=== PATIENT | male | born 1940 | race American Indian/Alaskan Native ===

== ENCOUNTER 2017-09-20 03:26 | Emergency (ER) | payer MEDICARE, BC ==
[2017-09-20 03:27] VITALS: BMI 24.8
[2017-09-20 03:42] VITALS: BP 144/87; PULSE 91; RESP 17; TEMP 97.9; O2SAT 98
[2017-09-20 04:07] LABS: BASO % 0.8 % (0.0-2.0); EOS # 0.2 K/uL (0.0-0.7); EOS % 3.2 % (0.0-4.0); HEMOGLOBIN 14.8 g/dL (12.0-18.0); LYMPH # 1.1 K/uL (1.0-4.3); LYMPH % 22.4 % (20.0-40.0); MEAN CELL VOLUME 88.4 fl (80.0-94.0); MEAN CORPUSCULAR HEMOGLOBIN 30.1 pg (27.0-31.0); MEAN CORPUSCULAR HGB CONC 34.1 g/dL (33.0-37.0); MEAN PLATELET VOLUME 8.5 fl (7.2-11.7); MONO # 0.4 K/uL (0.0-0.8); MONO % 7.3 % (0.0-10.0); NEUT # 3.4 K/uL (1.8-7.0); NEUT % 66.3 % (50.0-75.0); NRBC % 0.1 % (0.0-0.0); RBC 4.91 Mil/uL (4.40-5.90); RED CELL DISTRIBUTION WIDTH 14.2 % (11.5-14.5); WHITE BLOOD COUNT 5.1 K/uL (4.8-10.8)
--- NOTE | 2017-09-20 04:07 | ED PDOC ---
Lower Extremity Pain/Injury Time Seen by Provider: 09/20/17 03:33 Chief Complaint (Nursing): Lower Extremity Problem/Injury Chief Complaint (Provider): Lower Extremity Problem/Injury History Per: Patient History/Exam Limitations: no limitations Onset/Duration Of Symptoms: Days (x7) Current Symptoms Are (Timing): Still Present Additional Complaint(s): Nelson Rivera is a 76 year old male with a past medical history of dyslipidemia, diabetes, hypertension, and BPH who is presenting to the ED for evaluation of left calf pain, onset 1 week ago. Patient states that while walking he feels a soreness to his left calf which had improved in the last few days but started again last night. He reports that the pain is affecting his gait and says he is unable to raise his leg. Patient expresses concern for a blood clot but has no history of blood clots. He denies any localized swelling, redness, chest pain, or shortness of breath. He offers no other medical complaints at this time. PMD: Celia Albarado Past Medical History Reviewed: Historical Data, Nursing Documentation, Vital Signs Vital Signs: Last Vital Signs Temp 97.9 F 09/20/17 03:32 Pulse 91 H 09/20/17 03:32 Resp 17 09/20/17 03:32 BP 144/87 09/20/17 03:32 Pulse Ox 98 09/20/17 03:32 - Medical History PMH: Diabetes, HTN Other PMH: BPH, Dyslipidemia - Surgical History Other surgeries: Partial Colon Resection - Family History Family History: States: Unknown Family Hx - Social History Current smoker - smoking cessation education provided: No Alcohol: None Drugs: Denies - Allergies Allergies/Adverse Reactions: Allergies Allergy/AdvReac Type Severity Reaction Status Date / Time No Known Allergies Allergy Verified 02/07/16 07:41 Review of Systems ROS Statement: Except As Marked, All Systems Reviewed And Found Negative Cardiovascular: Negative for: Chest Pain Respiratory: Negative for: Shortness of Breath Musculoskeletal: Positive for: Leg Pain (calf pain). Negative for: Other (calf swelling, redness) Physical Exam - Reviewed Nursing Documentation Reviewed: Yes Vital Signs Reviewed: Yes - Physical Exam Appears: Positive for: Non-toxic, No Acute Distress Head Exam: Positive for: ATRAUMATIC, NORMAL INSPECTION, NORMOCEPHALIC Skin: Positive for: Normal Color, Warm, DRY Eye Exam: Positive for: EOMI, Normal appearance, PERRL ENT: Positive for: Normal ENT Inspection Neck: Positive for: Normal, Painless ROM Cardiovascular/Chest: Positive for: Regular Rate, Rhythm Respiratory: Positive for: Normal Breath Sounds. Negative for: Respiratory Distress Gastrointestinal/Abdominal: Positive for: Normal Exam, Soft. Negative for: Tenderness Back: Positive for: Normal Inspection Extremity: Positive for: Normal ROM, Other ((+) normal Xochitl's sign; (-) erythema, warmth to left calf; (+) scar to tibial surface from previous injury) . Negative for: Pedal Edema, Calf Tenderness, Deformity, Swelling Neurologic/Psych: Positive for: Alert, Oriented. Negative for: Motor/Sensory Deficits - Laboratory Results Result Diagrams: 09/20/17 04:00 09/20/17 04:00 - ECG O2 Sat by Pulse Oximetry: 98 (RA) Pulse Ox Interpretation: Normal Medical Decision Making Medical Decision Making: Time: 3:55 Impression: 76 year old male with left calf pain Plan: --CMP --Creatine Phosphokinase --CBC --D Dimer Patient states that the pain is currently minimal and declines any analgesics. 5:40 Labs reviewed which showed no clinically significant abnormalities. Upon provider reevaluation patient is feeling better, is medically stable, and requires no further treatment in the ED at this time. Patient will be discharged. Counseling was provided and all questions were answered regarding diagnosis and need for follow up with PMD. Patient advised to take Ibuprofen for the pain and encouraged to use warm compresses on site. There is agreement to discharge plan. Return if symptoms persist or worsen. Scribe Attestation: Documented by, Ashely Cruz acting as a scribe for Giovanny Julian MD. Provider Scribe Attestation: All medical record entries made by the Scribe were at my direction and personally dictated by me. I have reviewed the chart and agree that the record accurately reflects my personal performance of the history, physical exam, medical decision making, and the department course for this patient. I have also personally directed, reviewed, and agree with the discharge instructions and disposition. Disposition - Clinical Impression Clinical Impression: Strain of calf muscle - Patient ED Disposition Is Patient to be Admitted: No - Disposition Disposition: Routine/Home Disposition Time: 05:42 Condition: STABLE Instructions: Lower Extremity Muscle Strain Forms: [employer] (Togolese)
[2017-09-20 04:20] LABS: ALB/GLOB RATIO 1.4 (1.0-2.1); ALBUMIN 4.4 g/dL (3.5-5.0); ALT/SGPT 35 U/L (21-72); AST/SGOT 25 U/L (17-59); BLOOD UREA NITROGEN 15 mg/dl (9-20); CALCIUM 9.6 mg/dL (8.4-10.2); GFR AFRICAN-AMERICAN > 60; GFR NON-AFRICAN AMERICAN > 60
== END 2017-09-20 05:52 | disposition home or self-care (01) ==
LOC: H.ER 03:26
DX: S86.812A Strain of other muscle(s) and tendon(s) at lower leg level, left leg, initial encounter (principal); Y92.89 Other specified places as the place of occurrence of the external cause; E11.9 Type 2 diabetes mellitus without complications; E78.5 Hyperlipidemia, unspecified; I10 Essential (primary) hypertension; N40.0 Benign prostatic hyperplasia without lower urinary tract symptoms

== ENCOUNTER 2018-01-23 21:49 | Emergency (ER) | payer MEDICARE, BC ==
[2018-01-23 21:50] VITALS: BMI 24.8
--- NOTE | 2018-01-23 23:13 | ED PDOC ---
HPI: Hypertension/Hypotension Time Seen by Provider: 01/23/18 22:37 Chief Complaint (Nursing): High Blood Pressure Chief Complaint (Provider): high blood pressure History Per: Patient History/Exam Limitations: no limitations Onset/Duration Of Symptoms: Days (1) Current Symptoms Are (Timing): Still Present Associated Symptoms: Headache Additional Complaint(s): 77 y/o male history of hypertension, type II diabetes, hyperlipidemia, BPH presents for evaluation of elevated blood pressure x 1 day. Patient states he was his Urologist this morning and BP was elevated 154/90. Patient states he checked his blood pressure again around 16:30 and it was going up, highest 212/110. Patient reports left-sided frontal headache to develop around that time, which improved after taking two Advils at 19:00. Denies dizziness, extremity numbness/weakness, neck pain, chest pain, shortness of breath, palpitations, leg pain/swelling Patient states he was switched off of his Amlodipine to losartan 2 months ago, unsure why. Past Medical History Reviewed: Historical Data, Nursing Documentation, Vital Signs Vital Signs: Last Vital Signs Temp 98.4 F 01/23/18 22:23 Pulse 80 01/23/18 22:23 Resp 16 01/23/18 22:23 BP 175/105 H 01/23/18 22:23 Pulse Ox 95 01/23/18 22:23 - Medical History PMH: Diabetes, HTN - Family History Family History: States: Unknown Family Hx - Allergies Allergies/Adverse Reactions: Allergies Allergy/AdvReac Type Severity Reaction Status Date / Time No Known Allergies Allergy Verified 01/23/18 22:22 Review of Systems ROS Statement: Except As Marked, All Systems Reviewed And Found Negative Neurological: Positive for: Headache Physical Exam - Reviewed Nursing Documentation Reviewed: Yes Vital Signs Reviewed: Yes - Physical Exam Appears: Positive for: Well, Non-toxic, No Acute Distress Head Exam: Positive for: ATRAUMATIC, NORMAL INSPECTION, NORMOCEPHALIC Skin: Positive for: Normal Color Eye Exam: Positive for: Normal appearance, EOMI, PERRL ENT: Positive for: Normal ENT Inspection Cardiovascular/Chest: Positive for: Regular Rate, Rhythm Respiratory: Positive for: Normal Breath Sounds Gastrointestinal/Abdominal: Positive for: Normal Exam Back: Positive for: Normal Inspection Extremity: Positive for: Normal ROM Neurologic/Psych: Positive for: Alert, Oriented (x3) - Laboratory Results Result Diagrams: 10/09/18 23:45 01/23/18 23:45 - ECG ECG: Positive for: Viewed By Me (reviewed by ED attending) ECG Rhythm: Positive for: Sinus Rhythm O2 Sat by Pulse Oximetry: 95 - Progress ED Course And Treament: labs, ekg, CT head USArad impression: there is generalized parenchymal atrophy noted as demonstrates by symmetrical dilatation of ventricles and sulci. Chronic periventricular and subcortical microvascular disease is seen. No acute intracranial pathology On re-eval, patient resting comfortably; states no headache currently BP 164/103 Patient educated on findings, discharged with instructions to follow up with PMD tomorrow for BP eval Return precautions given Patient demonstrates full understanding of discharge instructions Patient requires no further intervention in the ED and is stable for discharge at this time Disposition - Clinical Impression Clinical Impression: Hypertension - Patient ED Disposition Is Patient to be Admitted: No Counseled Patient/Family Regarding: Studies Performed, Diagnosis, Need For Followup - Disposition Referrals: Cath Lab Service [Outside] Disposition: Routine/Home Disposition Time: 01:42 Condition: IMPROVED Instructions: High Blood Pressure in Adults, Controlling Your Blood Pressure Through Lifestyle Forms: [employer] ([place])
[2018-01-23 23:57] LABS: BASO # 0.1 K/uL (0.0-0.2); BASO % 0.8 % (0.0-2.0); EOS # 0.1 K/uL (0.0-0.7); EOS % 1.8 % (0.0-4.0); HEMOGLOBIN 13.7 g/dL (12.0-18.0); LYMPH # 1.1 K/uL (1.0-4.3); LYMPH % 18.4 % (20.0-40.0); MEAN CELL VOLUME 88.6 fl (80.0-94.0); MEAN CORPUSCULAR HEMOGLOBIN 29.7 pg (27.0-31.0); MEAN CORPUSCULAR HGB CONC 33.5 g/dL (33.0-37.0); MEAN PLATELET VOLUME 9.1 fl (7.2-11.7); MONO # 0.4 K/uL (0.0-0.8); MONO % 5.9 % (0.0-10.0); NEUT # 4.6 K/uL (1.8-7.0); NEUT % 73.1 % (50.0-75.0); RBC 4.63 Mil/uL (4.40-5.90); RED CELL DISTRIBUTION WIDTH 13.6 % (11.5-14.5); WHITE BLOOD COUNT 6.2 K/uL (4.8-10.8)
[2018-01-24 00:09] LABS: ALB/GLOB RATIO 1.4 (1.0-2.1); ALBUMIN 4.2 g/dL (3.5-5.0); ALT/SGPT 32 U/L (21-72); AST/SGOT 26 U/L (17-59); BLOOD UREA NITROGEN 15 mg/dl (9-20); CALCIUM 9.4 mg/dL (8.4-10.2); GFR NON-AFRICAN AMERICAN > 60
[2018-01-24 04:35] VITALS: BP 164/102; PULSE 88; RESP 16; TEMP 97.7; O2SAT 100
--- NOTE | 2018-01-24 08:27 | CT ---
Date of service: 01/23/2018 PROCEDURE: CT HEAD WITHOUT CONTRAST. HISTORY: headache, HTN COMPARISON: None available. TECHNIQUE: Axial computed tomography images were obtained through the head/brain without intravenous contrast. Radiation dose: Total exam DLP = 826 mGy-cm. This CT exam was performed using one or more of the following dose reduction techniques: Automated exposure control, adjustment of the mA and/or kV according to patient size, and/or use of iterative reconstruction technique. FINDINGS: HEMORRHAGE: No intracranial hemorrhage. BRAIN: No mass effect or edema. There is generalized cerebral atrophy. There is bilateral fairly symmetrical deep white matter posterior periventricular hypodensity compatible with chronic microvascular disease VENTRICLES: Unremarkable. No hydrocephalus. CALVARIUM: Unremarkable. PARANASAL SINUSES: Unremarkable as visualized. No significant inflammatory changes. MASTOID AIR CELLS: Unremarkable as visualized. No inflammatory changes. OTHER FINDINGS: None. IMPRESSION: Cerebral atrophy with posterior periventricular chronic microvascular disease changes.. No intracranial hemorrhage or mass effect. Concordant results (preliminary interpretation) provided by [facility].
== END 2018-01-24 01:55 | disposition home or self-care (01) ==
LOC: H.ER 21:49
DX: I10 Essential (primary) hypertension (principal); E11.9 Type 2 diabetes mellitus without complications